=== PATIENT | female | born 1995 | race African-American/Black ===

== ENCOUNTER 2019-11-27 | Emergency (ER) | payer BC ==
[~2019-11-27] MED LIST: AMOXICILLI400 MG/5 M PO; AMOXIL400 MG/5 M OR; ARTIF TEARS OD; BACTRIM DS1 TAB PO; FLONASE NASAL50 MCG; LACRI-LUBE S.O.P. OD; MUCINEX600 MG PO; NASONEX50 MCG/AC; NO HOME MEDS; PREDNISONE5 MG PO; ROBITUSSIN200 MG/10 PO; TESSALON200 MG PO; VALTREX1 GM OR; ZANTAC 150 OR
[2019-11-27 18:21] LABS: HEMATOCRIT 41.2 % (37.0-47.0); HEMOGLOBIN 12.9 g/dl (12.0-16.0); IMMATURE GRANULOCYTES 0.3 % (0.0-5.0); MEAN CELL VOLUME 85.1 fL CALC (80.0-100.0); MEAN CORPUSCULAR HGB 26.7 pG CALC (26.0-32.0); MEAN CORPUSCULAR HGB CONC 31.3 g/L CALC (32.0-36.0); NEUT# 5.71 thou/uL (2.00-7.15); RED BLOOD COUNT 4.84 mill/uL (4.20-5.60); RED CELL DISTRI WIDTH 13.2 % (11.5-15.5)
[2019-11-27 18:21] LABS: URINE BILIRUBIN - DIPSTICK NEGATIVE (NEGATIVE); URINE BLOOD DIPSTICK NEGATIVE (NEGATIVE); URINE COLOR YELLOW; URINE GLUCOSE - DIPSTICK NEGATIVE (NEGATIVE); URINE KETONE NEGATIVE (NEGATIVE); URINE LEUK ESTERASE TRACE (NEGATIVE); URINE NITRITE - DIPSTICK NEGATIVE (Negative); URINE PH 6.5 (4.5-8.0); URINE PROTEIN - DIPSTICK NEGATIVE (NEG-TRACE); URINE UROBILINOGEN - DIPSTICK 0.2 E.U./dL (0.2)
[2019-11-27 18:39] LABS: ALBUMIN 4.2 g/dL (3.2-5.0); ALKALINE PHOSPHATASE 58 u/l (38-126); ANION GAP 12 (6-22 (CALC)); BILIRUBIN, TOTAL 0.4 mg/dL (0.0-1.4); BUN 11 mg/dL (7-17); BUN/CREATININE RATIO 12 (12-20 (CALC)); CARBON DIOXIDE 24 mmol/l (22-30); CHLORIDE 105 mmol/l (95-108); CREATININE 0.9 mg/dL (0.5-1.0); GFR > 60 ML/MIN (>=60 (CALC)); GFR FOR AFR.AMER. > 60 ML/MIN (>=60 (CALC)); LIPASE 26 u/l (23-300); POTASSIUM 3.9 mmol/l (3.5-5.1); SGOT/AST 25 u/l (14-36); SODIUM 138 mmol/l (137-146)
== END 2019-11-27 20:20 | disposition home or self-care (01) | DRG 446 ==
PROVIDERS: Family Medicine
DX: K80.20 Calculus of gallbladder without cholecystitis without obstruction (principal)

== ENCOUNTER 2019-12-11 | Day surgery (SDC) | payer BC ==
[2019-12-11] MEDS ORDERED: PERCOCET 5/325M1 TAB PO (13:04)
[2019-12-12] MEDS ORDERED: CIPROFLOXACN500 MG PO ×2 (09:06→09:16)
== END 2019-12-11 14:05 | disposition home or self-care (01) | DRG 419 ==
PROC: 0FT44ZZ Resection of Gallbladder, Percutaneous Endoscopic Approach (ICD-10-PCS; principal; 2019-12-11)
DX: K80.10 Calculus of gallbladder with chronic cholecystitis without obstruction (principal)
CPT/HCPCS: J0131; J1100; J2710

== ENCOUNTER 2019-12-12 | Emergency (ER) | payer BC ==
[~2019-12-12] MED LIST changes: +PERCOCET 5/325M1 TAB PO
[2019-12-12 06:43] LABS: HEMATOCRIT 41.3 % (37.0-47.0); HEMOGLOBIN 13.1 g/dl (12.0-16.0); IMMATURE GRANULOCYTES 0.4 % (0.0-5.0); MEAN CORPUSCULAR HGB CONC 31.7 g/L CALC (32.0-36.0); NEUT# 11.58 thou/uL (2.00-7.15); RED BLOOD COUNT 4.86 mill/uL (4.20-5.60); RED CELL DISTRI WIDTH 13.2 % (11.5-15.5)
[2019-12-12 07:48] LABS: ALBUMIN 3.9 g/dL (3.2-5.0); ALKALINE PHOSPHATASE 63 u/l (38-126); AMYLASE 47 u/l (30-110); ANION GAP 11 (6-22 (CALC)); BILIRUBIN, TOTAL 0.3 mg/dL (0.0-1.4); BUN 12 mg/dL (7-17); BUN/CREATININE RATIO 22 (12-20 (CALC)); CARBON DIOXIDE 23 mmol/l (22-30); CHLORIDE 109 mmol/l (95-108); CREATININE 0.6 mg/dL (0.5-1.0); GFR > 60 ML/MIN (>=60 (CALC)); GFR FOR AFR.AMER. > 60 ML/MIN (>=60 (CALC)); LIPASE 19 u/l (23-300); POTASSIUM 4.1 mmol/l (3.5-5.1); SGOT/AST 31 u/l (14-36); SODIUM 138 mmol/l (137-146); TOTAL PROTEIN 7.2 g/dL (6.3-8.2)
[2019-12-12 08:00] LABS: MYOGLOBIN 19 ng/mL (0 - 62)
[2019-12-12] MEDS ORDERED: CIPROFLOXACN500 MG PO ×2 (09:06→09:16)
== END 2019-12-12 09:22 | disposition home or self-care (01) | DRG 313 ==
PROVIDERS: Family Medicine
DX: R07.9 Chest pain, unspecified (principal); Z90.49 Acquired absence of other specified parts of digestive tract
CPT/HCPCS: J0131; Q9967

== ENCOUNTER 2021-08-31 15:34 | Emergency (ER) | payer BC ==
[~2021-08-31] VITALS: Ht 177.8 cm; Wt 105.0 kg
[~2021-08-31 15:34] MED LIST changes: +CIPROFLOXACN500 MG PO
[2021-08-31 19:36] VITALS: BP 142/89
== END 2021-08-31 19:36 | disposition home or self-care (01) | DRG 204 ==
LOC: ED 15:34
DX: R06.02 Shortness of breath (principal)